=== PATIENT | female | born 1995 | race African-American/Black ===

== ENCOUNTER 2018-07-09 15:14 | Emergency (ER) | payer OTHER, SELFPAY ==
[2018-07-09] MEDS ORDERED: Ketorolac Tromethamine 30 MG/ML VIAL ONE (16:07)
--- NOTE | 2018-07-09 16:48 | RAD ---
THORACIC SPINE THREE VIEWS: 07/09/18 HISTORY: Pain. COMPARISON: None. FINDINGS: No fracture. No cortical irregularity or malalignment. Joint spaces are preserved. There are twelve t horacic spine type vertebral bodies. IMPRESSION: Unremarkable three views thoracic spine. POS: KRYSTINA
== END 2018-07-09 16:50 | disposition home or self-care (01) ==
LOC: ERS 15:14
DX: S29.012A Strain of muscle and tendon of back wall of thorax, initial encounter (principal); X50.0XXA Overexertion from strenuous movement or load, initial encounter; Y92.69 Other specified industrial and construction area as the place of occurrence of the external cause
CPT/HCPCS: 72072; 96372; J1885

== ENCOUNTER 2021-01-01 13:29 | Outpatient (CLI) | payer BC | END 2021-01-01 13:30 | disposition home or self-care (01) | LOC: BICULT 13:29 | PROVIDERS: ATTEND Specialist | DX: N64.4 Mastodynia (principal); N60.19 Diffuse cystic mastopathy of unspecified breast ==